=== PATIENT | male | born 1980 ===

== ENCOUNTER 2024-11-28 06:38 | Day surgery (SDC) | payer BC ==
[2024-11-27 12:10] VITALS: BMI 29.9
[2024-11-28] MEDS ORDERED: AFRIN NASAL MIST 15 ML BOT ONE ×2 (06:58→07:23)
[2024-11-28] MEDS ORDERED: Lidocaine 1% w/Epinephrine 1:200K 30 ML VIAL ONE (06:58)
[2024-11-28] MEDS ORDERED: PROPOFOL 20 ML ONE (08:16)
[2024-11-28] MEDS ORDERED: Rocuronium Bromide 10 MG/ML (10ML VIAL) ONE (08:17)
[2024-11-28] MEDS ORDERED: Lidocaine 1% PF 5 ML VIAL ONE (08:17)
[2024-11-28] MEDS ORDERED: SUGAMMADEX SODIUM 200 MG/2 ML VIAL ONE (10:06)
[2024-11-28] MEDS ORDERED: Ondansetron PF 4 MG/2 ML Vial ONE (10:15)
[2024-11-28] MEDS ORDERED: Hydrocodone-Acetamin 15 ML UDCUP ONE (12:23)
== END 2024-11-28 13:25 | disposition home or self-care (01) ==
LOC: CSHSDC 06:38
PROVIDERS: ATTEND Specialist
DX: J32.4 Chronic pansinusitis (principal); J34.3 Hypertrophy of nasal turbinates; J34.1 Cyst and mucocele of nose and nasal sinus; J33.0 Polyp of nasal cavity; G47.33 Obstructive sleep apnea (adult) (pediatric)
CPT/HCPCS: J0169; J1100; J2405; J2704; J3010